=== PATIENT | female | born 1965 | race Caucasian/White ===

== ENCOUNTER → 2017-01-02 | Outpatient (CLI) | payer BC ==
[~2017-01-02] MED LIST: CARAFATE 1GM1 G PO; ESTRACE 1MG1 MG/TAB PO; FD GARD PO; LEVOXYL0.2 MG PO; PAMELOR 25MG25 MG PO; PHENERGAN 25 TA25 MG PO; PHENTERMINE PO; PROTONIX 40MG T40 MG PO; SYNTHROID 0.0.025 MG PO; SYNTHROID 0.10.15 MG PO; SYNTHROID0.175 MG PO; ULTRAM 50MG TAB50 MG PO
== END ==
LOC: MC.RAD 16:00
DX: Z12.31 Encounter for screening mammogram for malignant neoplasm of breast (principal)

== ENCOUNTER → 2017-04-03 | Outpatient (CLI) | payer BC | LOC: COL.RAD 15:45 | DX: E04.9 Nontoxic goiter, unspecified (principal) ==

== ENCOUNTER → 2018-04-30 | Outpatient (CLI) | payer BC | LOC: MC.RAD 10:00 | DX: Z12.31 Encounter for screening mammogram for malignant neoplasm of breast (principal) ==

== ENCOUNTER → 2019-03-11 | Outpatient (CLI) | payer BC | LOC: COL.RAD 07:23 | DX: R10.13 Epigastric pain (principal) | CPT/HCPCS: A9541 ==

== ENCOUNTER → 2020-05-22 | Outpatient (CLI) | payer BC | LOC: MC.RAD 14:53 | DX: Z12.31 Encounter for screening mammogram for malignant neoplasm of breast (principal) ==